=== PATIENT | male | born 1980 | race African-American/Black ===

== ENCOUNTER 2017-11-01 18:14 | Emergency (ER) | payer SELFPAY ==
[~2017-11-01] VITALS: Ht 177.8 cm; Wt 98.0 kg
--- NOTE | 2017-11-01 18:29 | ED.ADGEN ---
Past History Past Medical History: No Pertinent History Past Surgical History: No Surgical History Smoking: Less than 1pk/day Alcohol Use: Occasionally Drug Use: None Adult General Chief Complaint Chief Complaint " I hurt my back some how... HPI HPI Patient is a 37 year old male who presents with above hx and complaints acute onset of Thoracic/ Lumbar junction pain. Pt. does do a lot of lifting at work. Pt. denies hx of fever, IV drug use, immunosuppression. Pt. pain in mid line and surrounding muscle spasm noted. Pt rates pain as 8.5 to 9/10, Hx of prior back injury of sprain strain. No problems with defecation or urination. Review of Systems Review of Systems Constitutional: Denies fever or chills [] Eyes: Denies change in visual acuity, redness, or eye pain [] HENT: Denies nasal congestion or sore throat [] Respiratory: Denies cough or shortness of breath [] Cardiovascular: No additional information not addressed in HPI [] GI: Denies abdominal pain, nausea, vomiting, bloody stools or diarrhea [] : Denies dysuria or hematuria [] Musculoskeletal: Complaints of back pain Integument: Denies rash or skin lesions [] Neurologic: Denies headache, focal weakness or sensory changes [] Endocrine: Denies polyuria or polydipsia [] All other systems were reviewed and found to be within normal limits, except as documented in this note. Family History Family History Non-contributory Current Medications Current Medications Current Medications Medications (Trade) Dose Ordered Sig/Kasie Start Time Stop Time Status Last Admin Dose Admin Ketorolac Tromethamine (Toradol) 60 mg 1X ONCE 11/01/17 19:15 11/01/17 19:16 DC 11/01/17 19:11 60 MG Methylprednisolone Acetate (DEPO-Medrol IM) 40 mg 1X ONCE 11/01/17 19:30 11/01/17 19:31 DC 11/01/17 19:15 40 MG Allergies Allergies Allergies Coded Allergies Type Severity Reaction Last Updated Verified No Known Drug Allergies 10/23/13 No Physical Exam Physical Exam Constitutional: Well developed, well nourished, moderately acute distress, non- toxic appearance. [] HENT: Normocephalic, atraumatic, bilateral external ears normal, oropharynx moist, no oral exudates, nose normal. [] Eyes: PERRLA, EOMI, conjunctiva normal, no discharge. [] Neck: Normal range of motion, no tenderness, supple, no stridor. [] Cardiovascular:Heart rate regular rhythm, no murmur [] Lungs & Thorax: Bilateral breath sounds equal at apex with scattered wheezes on auscultation [] Abdomen: Bowel sounds normal, soft, no tenderness, no masses, no pulsatile masses. [] Skin: Warm, dry, no erythema, no rash. [] Multiple tattoos Back: Complaints mid back muscle spasms and tenderness, no CVA tenderness. [] Extremities: No tenderness, no cyanosis, no clubbing, ROM intact, no edema. [] Neurologic: Alert and oriented X 3, normal motor function, normal sensory function, no focal deficits noted. []DTRs +2 patella and brachial. No saddle loss reported. Psychologic: Affect anxious, judgement normal, mood normal. [] Current Patient Data Vital Signs Vital Signs Date Time Temp Pulse Resp B/P (MAP) Pulse Ox O2 Delivery O2 Flow Rate FiO2 11/01/17 20:36 70 12 128/76 (93) 100 Room Air 11/01/17 18:25 98.3 EKG EKG [] Radiology/Procedures Radiology/Procedures CT shows DJD[], no acute fx. lumbar and thoracic. See formal report Course & Med Decision Making Course & Med Decision Making Pertinent Labs and Imaging studies reviewed. (See chart for details). Ice pack when necessary. Take Tylenol and ibuprofen for pain. Marked pain take Vicoprofen up to 4 times a day. Take Flexeril 10 mg up to 3 times a day for muscle spasms. Follow-up primary care. Return if any concerns. Encouraged the patient to stop smoking. [] Final Impression Final Impression 1. Back Pain[] 2. Degenerative joint changes 3. Muscle spasms Problems: Dragon Disclaimer Dragon Disclaimer This electronic medical record was generated, in whole or in part, using a voice recognition dictation system. RAMIN CLARK MD Nov 01, 2017 18:29
[2017-11-01] MEDS ORDERED: KETOROLAC 60 MG/2 ML VIAL. IM ONE (19:15)
[2017-11-01] MEDS ORDERED: methylPREDNISolone ACETATE 40 MG/ML VIAL. IM ONE (19:30)
--- NOTE | 2017-11-01 20:30 | RAD ---
CT thoracic spine without contrast. CT lumbar spine without contrast. HISTORY: Severe back pain. TECHNIQUE: Helical multiplanar reconstructed noncontrast CT imaging of the thoracic and lumbar spine was acquired. Thoracic spine findings: Thoracic vertebral body height and alignment intact. No fracture. No spondylolysis. No lytic or sclerotic bone lesion. Multilevel mild disc height loss and anterior endplate osteophytes and endplate Schmorl's nodes indicative of degenerative disc disease. The bony spinal canal appears to be grossly patent. Paraspinal tissues are unremarkable. Paraseptal pulmonary emphysema. 3 mm right apical pulmonary nodule image 17. Lumbar spine findings: Lumbar vertebral body height and alignment intact. No fracture. No spondylolysis defect. At L4-5 there is a probable mild disc bulge may contribute to mild-moderate spinal canal and moderate neural foraminal stenoses. L5-S1 there is posterior disc height loss with disc bulge and endplate osteophytes contributing to possibly mild spinal canal stenosis and moderate neural foraminal stenoses. Paraspinal tissues are unremarkable. Thoracic spine impression: No acute osseous injury. Degenerative disc disease. 3 mm right upper lobe pulmonary nodule. Lumbar spine impression: No acute osseous injury. Degenerative disc disease. Exposure: One or more of the following individualized dose reduction techniques were utilized for this examination: 1. Automated exposure control 2. Adjustment of the mA and/or kV according to patient size 3. Use of iterative reconstruction technique Electronically signed by: Jose Armando Shafer MD (11/01/2017 8:26 PM) [facility]
[2017-11-01 20:36] VITALS: BP 128/76
[2017-11-01] MEDS ORDERED: CYCL-331 PO (20:45)
[2017-11-01] MEDS ORDERED: HYDR-79 PO (20:45)
== END 2017-11-01 20:56 | disposition home or self-care (01) ==
LOC: ER 18:14
DX: M51.36 Other intervertebral disc degeneration, lumbar region (principal); F17.200 Nicotine dependence, unspecified, uncomplicated
CPT/HCPCS: 72128; 72131; 96372; 99284; J1030; J1885

== ENCOUNTER 2021-08-19 13:39 | Emergency (ER) | payer SELFPAY ==
[~2021-08-19] VITALS: Ht 177.8 cm; Wt 98.0 kg
[~2021-08-19 13:39] MED LIST: CYCL10TA19 PO; HYDR-1179 PO
[2021-08-19 13:43] VITALS: BP 121/72
--- NOTE | 2021-08-19 13:43 | PHYS DOC ---
Past History Past Medical History: No Pertinent History (LORENZO HAGEN APRN) Past Surgical History: No Surgical History (LORENZO HAGEN APRN) Smoking: Less than 1pk/day Alcohol Use: Rarely Drug Use: None (LORENZO HAGEN APRN) Adult General Chief Complaint Chief Complaint: RIB PAIN HPI HPI Patient is a 41-year-old male who presents to the emergency department and [facility] custody with chief complaint of right lower rib pain after being arrested and handcuffed just prior to arrival. Patient fears his ribs may be broken. Patient denies anterior or sternal chest pain, denies shortness of breath, denies loss of consciousness, denies dizziness, near syncopal or syncopal episodes, patient denies other physical complaints or physical concerns. (LORENZO HAGEN APRN) Review of Systems Review of Systems 14 body systems of review of systems have been reviewed. See HPI for pertinent positives and negative responses, otherwise all other systems are negative, nonpertinent or noncontributory. Constitutional: Negative except as outlined in HPI above. Skin: Negative except as outlined in HPI above. Eyes: Negative except as outlined in HPI above. HENT: Negative except as outlined in HPI above. Respiratory: Negative except as outlined in HPI above. Cardiovascular: Negative except as outlined in HPI above. GI: Negative except as outlined in HPI above. : Negative except as outlined in HPI above. Musculoskeletal: Negative except as outlined in HPI above. Integument: Negative except as outlined in HPI above. Neurologic: Negative except as outlined in HPI above. Endocrine: Negative except as outlined in HPI above. Lymphatic: Negative except as outlined in HPI above. Psychiatric: Negative except as outlined in HPI above. (LORENZO HAGEN APRN) Allergies Allergies Allergies Coded Allergies Type Severity Reaction Last Updated Verified No Known Drug Allergies 10/23/13 No (LORENZO HAGEN APRN) Physical Exam Physical Exam Constitutional: Well developed, well nourished, no acute distress, non-toxic appearance. 41-year-old male in no apparent distress. Patient is handcuffed to bed by [facility] HENT: Normocephalic, atraumatic. Eyes: Conjunctiva normal, no discharge. Neck: Normal range of motion, no stridor. Cardiovascular: No cyanosis appreciated, distal cap refill less than 2 seconds. Heart sounds S1-S2 dilatation, regular rate and rhythm. Lungs & Thorax: Patient is in no respiratory distress, no audible adventitious lung sounds appreciated. Lung sounds clear to auscultation all lung moraes, pain to palpation over right lower lateral rib area, no subcu air appreciated, no deformities or bruising appreciated, no skin discoloration appreciated. Normal work of breathing. Abdomen: Nontender, no abnormalities noted. Skin: Warm, dry, no erythema, no rash. Back: No tenderness, no deformities. Extremities: No tenderness, no cyanosis, no clubbing, ROM intact, no edema. Neurologic: Alert and oriented X 3, normal motor function, normal sensory function, no focal deficits noted. Psychologic: Affect normal, judgement normal, mood normal. (LORENZO HAGEN APRN) EKG EKG [] (LORENZO HAGEN APRN) Radiology/Procedures Radiology/Procedures [] (LORENZO HAGEN APRN) Heart Score C/O Chest Pain: No Risk Factors: Risk Factors: DM, Current or recent (<one month) smoker, HTN, HLP, family history of CAD, obesity. Risk Scores: Risk Factors: DM, Current or recent (<one month) smoker, HTN, HLP, family history of CAD, obesity. (LORENZO HAGEN APRN) Course & Med Decision Making Course & Med Decision Making Pertinent Labs and Imaging studies reviewed. (See chart for details) 41-year-old male, vital signs reviewed, presents emerged from concerning right lateral rib pain after being arrested by [place] [employer]. Physical examination is unremarkable, there were no deformities or signs of contusion appreciated, however related to patient's chief complaint will order chest x-ray. Chest x-ray wet read by myself and ED attending physician Dr. Banks, no acute rib fractures appreciated, discussed findings with patient, ice packs to the sore areas 30 minutes on 30 minutes off while awake. Follow-up with primary care for ongoing discomfort, return to ER precautions or concerns were reviewed, patient verbal understanding of and is amenable to ED discharge planning. Discussed with the patient all findings and diagnostic testing as well as the need to follow-up with their primary care provider for further evaluation and treatment or return to the ED if any new or worsening symptoms. Strict return precautions were also discussed at length, the patient voiced understanding and agreement with the discharge planning. The patient was nontoxic in appearance, in no apparent distress, and hemodynamically stable at the time of disposition. (LORENZO HAGEN APRN) Dragon Disclaimer Dragon Disclaimer This electronic medical record was generated, in whole or in part, using a voice recognition dictation system. (LORENZO HAGEN APRN) Attending Co-Sign The patient was seen and interviewed as well as examined at the bedside. The chart was reviewed. The case was discussed. Agree with the plan of care. (PARISH BANKS DO) Departure Departure: Impression: Primary Impression: Rib pain on right side Disposition: HOME / SELF CARE / HOMELESS Condition: GOOD Referrals: PCP,NO (PCP) Patient Instructions: Rib Contusion Additional Instructions: You were seen in the emergency department for right rib pain after being arrested by police department officers, and x-ray was performed of your ribs, there were no concerning findings of broken bones in your ribs, there is no signs of bruising however from the reported injury I suspect you have underlying contusion from the incident, please apply ice packs 30 minutes on and 30 minutes off while awake to assist with rib discomfort. Follow-up with your primary care physician soon, if you do not have a primary care physician please consider using the [facility] located [facility] [address] [place] [address] [place] [address], their telephone number is area code [phone]. You may use [id number] Tylenol or Motrin for ongoing discomfort. Thank you for visiting our Emergency Department. It was a pleasure taking care of you today in the emergency department and we appreciate you trusting us with your care. If any additional problems come up don't hesitate to return to visit us. Please follow up with your primary care provider so they can plan additional care if needed and know about the problem that you had. If symptoms worsen come back to the Emergency Department. Any concerning symptoms that start such as chest pain, shortness of air, weakness or numbness on one side of the body, running high fevers or any other concerning symptoms return to the ER. EMERGENCY DEPARTMENT GENERAL DISCHARGE INSTRUCTIONS Thank you for coming to [facility] (ED) today and trusting us with you care. We trust that you had a positivie experience in our Emergency Department. If you wish to speak to the department management, you may call the director at [phone]. YOUR FOLLOW UP INSTRUCTIONS ARE FOLLOWS: 1. Do you have a private Doctor? If you do not have a private doctor, please ask for a resource list of physicians or clinics that may be able to assist you with follow up care. 2. The Emergency Physician has interpreted your x-rays. The X-Ray specialist will also review them. If there is a change in the findings, you will be notified in 48 hours when at all possible. 3. A lab test or culture has been done, your results will be reviewed and you will be notified if you need a change in treatment. ADDITIONAL INSTRUCTIONS AND INFORMATION: 1. Your care today has been supervised by a physician who is specially trained in emergency care. Many problems require more than one evaluation for a complete diagnosis and treatment. We recommend that you schedule your follow up appointment as recomme nded to ensure complete treatment of you illness or injury. If you are unable to obtain follow up care and continue to have a problem, or if your condition worsens, we recommend that you return to the ED. 2. We are not able to safely determine your condition over the phone nor are we able to give sound medical advice over the phone. For these safety reasons, if you call for medical advice we will ask you to come to the ED for further evaluation. 3. If you have any questions regarding these discharge instructions please call the ED at [phone]. SAFETY INFORMATION: In the interest of safety, wellness, and injury prevention; we encourage you to wear your sealbelt, if you smoke; quite smoking, and we encourage family to use a protective helmet for bicycling and other sporting events that present an increased risk for head injury. IF YOUR SYMPTOMS WORSEN OR NEW SYMPTOMS DEVELOP, OR YOU HAVE CONCERNS ABOUT YOUR CONDITION; OR IF YOUR CONDITION WORSENS WHILE YOU ARE WAITING FOR YOUR FOLLOW UP APPOINTMENT; EITHER CONTACT YOUR PRIMARY CARE DOCTOR, THE PHYSICIAN WHOSE NAME AND NUMBER YOU WERE GIVEN, OR RETURN TO THE ED IMMEDIATELY. LORENZO HAGEN APRN Aug 19, 2021 13:43 PARISH BANKS DO Aug 20, 2021 10:24
--- NOTE | 2021-08-19 14:13 | RAD ---
Single view chest dated 08/19/2021 2:10 PM: COMPARISON: 10/23/2013 Clinical Indication: Right-sided pain after injury. Findings: Single upright portable exam of the chest was performed. Heart size and mediastinal contours are with in normal limits. Lungs are clear. No consolidation or pleural effusion. No pneumothorax. IMPRESSION: No acute radiographic abnormality. Electronically signed by: Dinh Beckett MD (08/19/2021 2:11 PM) [id number]
== END 2021-08-19 14:15 | disposition home or self-care (01) ==
LOC: ER 13:39
DX: R07.81 Pleurodynia (principal); F17.200 Nicotine dependence, unspecified, uncomplicated
CPT/HCPCS: 71045; 99283